=== PATIENT | female | born 1950 | race Caucasian/White ===

== ENCOUNTER 2017-12-09 19:35 | Observation (INO) | payer OTHER, BC ==
[~2017-12-09] VITALS: Ht 172.7 cm; Wt 82.1 kg
--- NOTE | ~2017-12-09 | EKG ---
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
[2017-12-09 19:47] VITALS: BP 172/99
[2017-12-09 23:47] LABS: ABSOLUTE NEUTROPHILS 5.6 thou/uL (1.4-8.2); BASOPHILS 0.7 % (0.0-2.0); EOSINOPHILS 1.5 % (0.0-3.0); HEMATOCRIT 38.9 % (37.0-47.0); HEMOGLOBIN 13.2 gm/dL (12.0-15.0); LYMPHOCYTES 24.7 % (24.0-44.0); MCH 32.4 pg (26.0-34.0); MCHC 33.9 g/dL (28.0-37.0); MCV 95.5 fL (80.0-100.0); MONOCYTES 7.6 % (1.0-8.0); PLATELET COUNT 185 thou/uL (150-400); POLYS 65.5 % (36.0-66.0); RBC 4.08 mil/uL (4.20-5.00); RDW 13.5 % (10.5-14.5); WBC 8.6 thou/uL (4.0-11.0)
[2017-12-09 23:59] LABS: CALCIUM 8.8 mg/dL (8.5-10.1); CREATININE 1.7 mg/dL (0.6-1.0)
[2017-12-10] VITALS (7 sets, daily range): BP systolic 136–172; BP diastolic 84–99
[2017-12-10] LABS: APTT 30.2 Seconds (24.5-32.8); INR 1.1; PROTIME 11.7 Seconds (9.3-11.4)
[2017-12-10 00:03] LABS: ALBUMIN 3.8 g/dL (3.4-5.0); TOTAL BILIRUBIN 0.3 mg/dL (<0.1-1.0); TOTAL PROTEIN 7.5 g/dL (6.4-8.2)
[2017-12-10 00:18] LABS: LARGE PLATELETS RARE
[2017-12-10] MEDS ORDERED: TAMBOCOR 100 M100 M1 PO (02:29)
[2017-12-10] MEDS ORDERED: XARELTO20 MG PO (02:30)
[2017-12-10] MEDS ORDERED: EFFEXOR XR150 MG PO (02:31)
[2017-12-10] MEDS ORDERED: TOPROL XL25 MG PO (02:33)
[2017-12-10] MEDS ORDERED: NEURONTIN 300300 M1 PO (02:34)
[2017-12-10] MEDS ORDERED: ZOCOR20 MG PO (02:35)
[2017-12-10] MEDS ORDERED: WELLBUTRIN XL300 MG PO (02:36)
[2017-12-10] MEDS ORDERED: TOPAMAX 100 MG100 MG PO (02:36)
[2017-12-10] MEDS ORDERED: ZANAFLEX4 MG PO (02:38)
[2017-12-10 05:43] LABS: HEMATOCRIT 33.2 % (37.0-47.0); MCH 32.1 pg (26.0-34.0); MCHC 33.4 g/dL (28.0-37.0); MCV 96.1 fL (80.0-100.0); RBC 3.45 mil/uL (4.20-5.00); RDW 13.4 % (10.5-14.5); WBC 7.2 thou/uL (4.0-11.0)
[2017-12-10 05:47] LABS: HEMOGLOBIN 11.1 gm/dL (12.0-15.0)
[2017-12-10 05:57] LABS: CALCIUM 8.8 mg/dL (8.5-10.1); CREATININE 1.5 mg/dL (0.6-1.0)
[2017-12-10] MEDS ORDERED: LEVAQUIN 750 M750 MG PO (18:07)
== END 2017-12-10 23:40 | disposition home or self-care (01) ==
LOC: ER 19:35 → EROBS 23:50 → 4W 12-10 00:55
PROVIDERS: Nurse Practitioner Acute Care; Physician Assistant
DX: S02.2XXA Fracture of nasal bones, initial encounter for closed fracture (principal); R04.0 Epistaxis; I48.2 Chronic atrial fibrillation; I10 Essential (primary) hypertension; G43.909 Migraine, unspecified, not intractable, without status migrainosus; F32.9 Major depressive disorder, single episode, unspecified; W01.119A Fall on same level from slipping, tripping and stumbling with subsequent striking against unspecified sharp object, initial encounter; Y93.89 Activity, other specified; Y92.89 Other specified places as the place of occurrence of the external cause; Z23 Encounter for immunization